=== PATIENT | male | born 1985 | race Caucasian/White ===

== ENCOUNTER 2016-12-29 09:27 | Day surgery (SDC) | payer BC ==
[~2016-12-29] VITALS: Ht 198.1 cm; Wt 178.2 kg
[2016-12-29 10:03] VITALS: BP 135/95; PULSE 106; TEMP 99.7
[2016-12-29] MEDS ORDERED: PREDNISONE10 MG PO (10:09)
[2016-12-29] MEDS ORDERED: LIALDA 1.2 GM1.2 GM PO (10:10)
[2016-12-29 11:23] VITALS: BP 124/82; PULSE 90
[2016-12-29 11:40] VITALS: BP 135/81; PULSE 89
[2016-12-29 11:55] VITALS: BP 140/89; PULSE 86
[2016-12-29 13:50] VITALS: BP 137/88; PULSE 84
== END 2016-12-29 12:10 | disposition home or self-care (01) ==
LOC: SDCO 09:27
DX: R19.5 Other fecal abnormalities (principal); K64.1 Second degree hemorrhoids; K59.00 Constipation, unspecified; R19.7 Diarrhea, unspecified; K50.90 Crohn's disease, unspecified, without complications; E66.01 Morbid (severe) obesity due to excess calories
CPT/HCPCS: OP; J2704; J7030

== ENCOUNTER 2018-03-25 08:21 | Inpatient (IN) | payer BC ==
[~2018-03-25] VITALS: Ht 198.1 cm; Wt 141.6 kg
[~2018-03-25 08:21] MED LIST: LIALDA 1.2 GM1.2 GM PO; PREDNISONE10 MG PO
[2018-03-25 09:27] LABS: BASO % 0.4 % (0.0-2.0); EOS # 0.2 (0.0-0.7); EOS % 2.3 % (0-4.0); GRAN # 5.4 (1.4-6.5); GRAN % 70.3 % (42.2-75.2); HEMATOCRIT 41.3 % (42.0-52.0); HEMOGLOBIN 12.9 g/dl (13.5-18.0); LYMPH # 1.5 (1.2-3.4); LYMPH % 18.9 % (20.0-51.0); MEAN CELL VOLUME 83 fl (80.0-100.0); MEAN CORPUSCULAR HEMOGLOBIN 26 pg (27.0-31.0); MEAN CORPUSCULAR HGB CONC 31 g/dl (33.0-37.0); MEAN PLATELET VOLUME 9.3 fl (7.4-10.4); MONO # 0.6 (0.1-0.6); MONO % 7.7 % (1.7-9.3); PLATELET COUNT 291 K/mm3 (130-400); RED BLOOD COUNT 4.96 M/mm3 (4.20-5.60); REDCELL DISTRIBUTION WIDTH-CV 15.1 % (11.5-14.5)
[2018-03-25 09:50] LABS: ALBUMIN 3.8 gm/dL (3.5-5.0); BILIRUBIN,TOTAL 0.4 mg/dL (0.0-1.0); C-REACTIVE PROTEIN 4.1 mg/dL (0.0-0.9); CREATININE, serum 0.91 mg/dL (0.66-1.25); POTASSIUM 3.4 mmol/L (3.4-5.0); TOTAL PROTEIN 7.3 gm/dL (6.4-8.2)
[2018-03-25 10:29] LABS: COLLECTION METHOD CLEAN CATCH
[2018-03-25 10:52] LABS: MUCOUS Present /lpf; PH 5 (5-8); SQUAMOUS EPITHELIAL None Seen /hpf; URINE APPEARANCE Hazy; URINE BACTERIA None Seen /hpf; URINE BILIRUBIN Negative (NEGATIVE); URINE BLOOD Negative (NEGATIVE); URINE COLOR Amber; URINE GLUCOSE Negative (NEGATIVE); URINE KETONE Negative (NEGATIVE); URINE LEUKOCYTE ESTERASE Negative (NEGATIVE); URINE NITRATE Negative (NEGATIVE); URINE PROTEIN(semi-quant) 1+ (NEGATIVE); URINE RBC None Seen /hpf; URINE UROBILINOGEN Negative (NEGATIVE)
[2018-03-25 14:30] VITALS: BP 111/67; PULSE 59; TEMP 98
[2018-03-25 20:32] VITALS: BP 96/48; PULSE 50; TEMP 97.6
[2018-03-25 23:52] VITALS: BP 98/65; PULSE 48; TEMP 97.7
[2018-03-26 03:47] VITALS: BP 104/56; PULSE 48; TEMP 97.8
[2018-03-26 07:20] LABS: BASO % 0.1 % (0.0-2.0); GRAN # 6.7 (1.4-6.5); HEMATOCRIT 37.6 % (42.0-52.0); HEMOGLOBIN 11.7 g/dl (13.5-18.0); LYMPH % 12.1 % (20.0-51.0); MEAN CELL VOLUME 84 fl (80.0-100.0); MEAN CORPUSCULAR HEMOGLOBIN 26 pg (27.0-31.0); MEAN CORPUSCULAR HGB CONC 31 g/dl (33.0-37.0); MEAN PLATELET VOLUME 9.7 fl (7.4-10.4); MONO # 0.3 (0.1-0.6); MONO % 3.4 % (1.7-9.3); PLATELET COUNT 265 K/mm3 (130-400); RED BLOOD COUNT 4.46 M/mm3 (4.20-5.60)
[2018-03-26 07:35] LABS: CALCIUM 8.5 mg/dL (8.4-10.2); CREATININE, serum 0.81 mg/dL (0.66-1.25)
[2018-03-26 08:10] VITALS: BP 96/54; PULSE 63; TEMP 97.5
[2018-03-26 12:08] VITALS: BP 114/61; PULSE 52; TEMP 98.1
[2018-03-26 16:25] VITALS: BP 122/74; PULSE 80; TEMP 98.6
[2018-03-26 20:03] VITALS: BP 114/65; PULSE 84; TEMP 98.3
[2018-03-27 00:44] VITALS: BP 115/66; PULSE 57; TEMP 98.6
[2018-03-27 04:46] VITALS: BP 105/58; PULSE 55; TEMP 98.4
[2018-03-27 08:08] VITALS: BP 106/68; PULSE 53; TEMP 97.6
[2018-03-27 11:50] VITALS: BP 124/84; PULSE 88; TEMP 97.8
== END 2018-03-27 13:46 | disposition home or self-care (01) | DRG 392 ==
LOC: COL.ER 08:21 → SURG 12:46
PROVIDERS: Nurse Practitioner; Surgery
DX: K52.9 Noninfective gastroenteritis and colitis, unspecified (principal); F17.220 Nicotine dependence, chewing tobacco, uncomplicated
CPT/HCPCS: J1170; J1720; J2405; J7030; J7042; J7512; Q9967

== ENCOUNTER 2018-04-01 13:16 | Day surgery (SDC) | payer BC ==
[~2018-04-01] VITALS: Ht 198.1 cm; Wt 143.1 kg
[2018-04-01] MEDS ORDERED: PREDNISONE20 MG PO (13:51)
[2018-04-01 14:07] VITALS: BP 145/84; PULSE 65; TEMP 98.5
[2018-04-01 15:05] VITALS: BP 117/79; PULSE 73; TEMP 98.8
[2018-04-01 15:20] VITALS: BP 120/73; PULSE 64
[2018-04-01 15:35] VITALS: BP 124/66; PULSE 62
[2018-04-01 15:50] VITALS: BP 124/61; PULSE 63
[2018-04-01 15:57] VITALS: BP 114/86; PULSE 56
== END 2018-04-01 16:20 | disposition home or self-care (01) ==
LOC: SDCO 13:16
DX: K50.10 Crohn's disease of large intestine without complications (principal); K56.609 Unspecified intestinal obstruction, unspecified as to partial versus complete obstruction; K52.9 Noninfective gastroenteritis and colitis, unspecified; E66.01 Morbid (severe) obesity due to excess calories
CPT/HCPCS: J2704

== ENCOUNTER 2018-11-05 02:41 | Inpatient (IN) | payer BC ==
[~2018-11-05] VITALS: Ht 198.1 cm; Wt 142.0 kg
[~2018-11-05 02:41] MED LIST changes: +PREDNISONE20 MG PO
[2018-11-05 03:31] LABS: BASO % 0.2 % (0.0-2.0); EOS # 0.1 (0.0-0.7); EOS % 1.1 % (0-4.0); GRAN # 10.3 (1.4-6.5); GRAN % 81.6 % (42.2-75.2); HEMATOCRIT 39.9 % (42.0-52.0); HEMOGLOBIN 12.7 g/dl (13.5-18.0); LYMPH # 1.4 (1.2-3.4); LYMPH % 11.1 % (20.0-51.0); MEAN CELL VOLUME 86 fl (80.0-100.0); MEAN CORPUSCULAR HEMOGLOBIN 27 pg (27.0-31.0); MEAN CORPUSCULAR HGB CONC 32 g/dl (33.0-37.0); MEAN PLATELET VOLUME 8.9 fl (7.4-10.4); MONO # 0.7 (0.1-0.6); MONO % 5.4 % (1.7-9.3); PLATELET COUNT 274 K/mm3 (130-400); RED BLOOD COUNT 4.66 M/mm3 (4.20-5.60); REDCELL DISTRIBUTION WIDTH-CV 13.6 % (11.5-14.5)
[2018-11-05] MEDS ORDERED: AZULFIDINE ENT500 MG PO (03:34)
[2018-11-05 03:44] LABS: ALBUMIN 3.6 gm/dL (3.5-5.0); BILIRUBIN,TOTAL 0.2 mg/dL (0.0-1.0); CALCIUM 8.5 mg/dL (8.4-10.2); CREATININE, serum 1.03 mg/dL (0.66-1.25); POTASSIUM 3.9 mmol/L (3.4-5.0)
[2018-11-05 04:03] LABS: COLLECTION METHOD CLEAN CATCH
[2018-11-05 04:12] LABS: PH 5 (5-8); SQUAMOUS EPITHELIAL None Seen /hpf; URINE APPEARANCE Clear; URINE BACTERIA None Seen /hpf; URINE BILIRUBIN Negative (NEGATIVE); URINE BLOOD Negative (NEGATIVE); URINE COLOR Yellow; URINE GLUCOSE Negative (NEGATIVE); URINE KETONE Negative (NEGATIVE); URINE LEUKOCYTE ESTERASE Negative (NEGATIVE); URINE NITRATE Negative (NEGATIVE); URINE PROTEIN(semi-quant) Negative (NEGATIVE); URINE RBC None Seen /hpf; URINE UROBILINOGEN Negative (NEGATIVE)
--- NOTE | 2018-11-05 09:04 | NUR ---
Pt report received from Pedro Pablo in emergency dept. Pt brought up to room. Pt sitting on bed and alert and oriented. Pt rates pain 5/10 in epigastric that radiates to left abdomen and back. Pt pain managed with PRN pain medicine. Pt denies SOB, dizziness, or chest pain. Pt oriented to room and denies further needs at this time. Meds list reviewed.
[2018-11-05 09:21] VITALS: BP 104/54; PULSE 63; TEMP 98.1
--- NOTE | 2018-11-05 10:15 | NUR ---
Initial visit; Patient thanked Truck Driving Instructor for looking in on him and offering God's blessings.
[2018-11-05 11:28] VITALS: BP 107/52; PULSE 59; TEMP 98.2
--- NOTE | 2018-11-05 14:15 | NUR ---
SW met with patient to discuss discharge planning. Patient lives in [place] and is independent in ADLs. patients PCP is Dr Oliver and he obtains his medicaitons from [facility] in . Patient plans [place] dc home at [place] with no unmet needs.
[2018-11-05 16:07] VITALS: BP 103/45; PULSE 63; TEMP 98.1
--- NOTE | 2018-11-05 17:12 | NUR ---
Pt resting in bed alert but drowsy. Pt put on fall precautions d/t narcotic pain medication being administered. Pt pain down to 4/10 after Percocet. Pt rated pain 5/10 and requested Dilaudid at 1700. Pt IV patent and fluids running. Pt has call light in reach and SCD's on BLE. Pt denies SOB or dizziness at this time.
--- NOTE | 2018-11-05 19:21 | NUR ---
Pt alert and oriented. Pt pain managed with PRN meds. Pt steady gait but on fall risk d/t pain medications. Pt mother and father at bedside. Pt ambulate in hallway with SBA to decrease back pain. Pt tolerating clear liquids without issue. Pt denies needs at this time and call light in reach. Pt report given to Archana REID.
[2018-11-05 19:29] VITALS: BP 109/53; PULSE 60; TEMP 97.9
--- NOTE | 2018-11-05 20:50 | NUR ---
Shift assessment complete. Pt resting in bed, awake, a&o, cooperative c cares. Pt reports continued c/o abd pain rated "about 6/10"; will give PRN pain meds c hs meds per pt request. IV patent. Pt denies further needs. Call light in reach, will monitor.
[2018-11-06 00:18] VITALS: BP 115/54; PULSE 58; TEMP 97.1
[2018-11-06 03:30] VITALS: BP 100/50; PULSE 47; TEMP 97.4
--- NOTE | 2018-11-06 07:00 | NUR ---
Pt resting in bed, condition unchanged. Pt has rested well this shift c very few needs. Pain moderately well controlled, rated 5-6/10. No N/V reported. Bedside shift report given to Hillary REID to assume pt cares.
[2018-11-06 07:52] VITALS: BP 102/59; PULSE 46; TEMP 97.6
--- NOTE | 2018-11-06 08:13 | NUR ---
PT HAS BEEN AMBULATING IN ROOM, STILL HAVING ABDOMINAL PAIN. HAS BEEN GIVEN PAIN MEDICATION, BUT HAS NOT CHANGED SCORE OF PAIN, IT IS STILL A 6/10 THAT IS ACHING. PT IS A/O X4, GAIT STEADY, AND HAS NOT HAD A BOWEL MOVEMENT FOR FOUR DAYS. PT STILL ON CLEAR LIQUID DIET. NO NEEDS AT THIS TIME, CALL LIGHT WITHIN REACH.
--- NOTE | 2018-11-06 10:24 | NUR ---
PT CONTINUES TO HAVE PAIN IN LEFT LOWER QUADRANT OF ABDOMINAL THAT IS RATED AT 7/10 THAT IS ACHING. PT GIVEN PERCOCET FOR PAIN. PT AMBULATES IN ROOM INDEPENDENTLY AND GAIT IS STEADY. NO FURTHER NEEDS AT THIS TIME, CALL LIGHT WITHIN REACH.
[2018-11-06 11:10] VITALS: BP 115/60; PULSE 64; TEMP 97.7
[2018-11-06 15:52] VITALS: BP 117/56; PULSE 51; TEMP 97.6
--- NOTE | 2018-11-06 20:24 | NUR ---
Sitting at bedside with parents in room. Assessment complete. Alert and orientated. Lungs clear. Heart sounds normal. Bowels active x4. Reports lower back and ABD pain, requesting pain medication after shower. No edema noted at this time. INT site wrapped for shower. Denies other needs. Will notify staff when shower complete for pain medications.
--- NOTE | 2018-11-06 21:11 | NUR ---
Provided PRN percocet 1 tab for 7/10 aching lower back and ABD pain.
[2018-11-06 22:12] VITALS: BP 104/56; PULSE 56; TEMP 97.2
[2018-11-07] VITALS: BP 119/61; PULSE 53; TEMP 98
--- NOTE | 2018-11-07 00:05 | NUR ---
Rating lower back and ABD pain 7/10. Provided PRN diluadid at this time. Denies other needs. Will monitor.
--- NOTE | 2018-11-07 04:30 | NUR ---
Reports 7/10 back and ABD pain. Provided with PRN percocet. Denies other needs. Call light in reach.
[2018-11-07 05:31] VITALS: BP 101/60; PULSE 52; TEMP 97.7
--- NOTE | 2018-11-07 06:26 | NUR ---
Uneventful night. Require pain medication for lower back and ABD pain. Rates pain above 5-6 throughout night. Denies needs this AM. Call light in reach.
--- NOTE | 2018-11-07 07:19 | NUR ---
Report given to FRANKLIN Chu.
[2018-11-07 07:53] LABS: HEMATOCRIT 38.3 % (42.0-52.0); HEMOGLOBIN 12.1 g/dl (13.5-18.0); MEAN CELL VOLUME 87 fl (80.0-100.0); MEAN CORPUSCULAR HEMOGLOBIN 27 pg (27.0-31.0); MEAN CORPUSCULAR HGB CONC 32 g/dl (33.0-37.0); MEAN PLATELET VOLUME 9.3 fl (7.4-10.4); PLATELET COUNT 324 K/mm3 (130-400); RED BLOOD COUNT 4.42 M/mm3 (4.20-5.60); REDCELL DISTRIBUTION WIDTH-CV 13.7 % (11.5-14.5)
[2018-11-07 08:09] LABS: CALCIUM 8.9 mg/dL (8.4-10.2); CREATININE, serum 0.81 mg/dL (0.66-1.25)
[2018-11-07 08:18] VITALS: BP 130/78; PULSE 61; TEMP 97.5
[2018-11-07 08:34] LABS: POTASSIUM 4.1 mmol/L (3.4-5.0)
--- NOTE | 2018-11-07 08:50 | NUR ---
Assessment completed, alert/ oriented, vital signs stable, reported intial pain assessment at 03/12 , Dilaudid and Ultram given and pain a 5 on reassessment, abdomen is soft / reports tenderness in lower quadrants, has been by and ordered for Fat controlled diet/ and a suppository to help get things moving, patient is ambulatory and walks the halls hoping this will help stimulate motility, heart RRR, lungs CTA, overall feeling a little better and pain is better today, he denies other needs at this time, will continue to monitor
[2018-11-07 09:35] LABS: BAND 10 % (0-10); NEUTROPHILS 81 % (42.0-75.2); PLATELET ESTIMATE NORMAL (NORMAL)
[2018-11-07 09:36] LABS: LYMPHOCYTE 8 % (20.0-51.0)
[2018-11-07 11:22] VITALS: BP 120/66; PULSE 54; TEMP 97.5
[2018-11-07 15:25] VITALS: BP 125/65; PULSE 51; TEMP 98
--- NOTE | 2018-11-07 19:03 | NUR ---
Report received from FRANKLIN Chu. Denies needs. Call light in reach.
[2018-11-07 20:30] VITALS: BP 133/75; PULSE 73; TEMP 97.8
--- NOTE | 2018-11-07 21:59 | NUR ---
Resting in bed. Assessment complete. Lungs clear. Heart sounds normal. Bowels active x4. No edema noted. Patient reports 4/10 ABD pain. Denies need for intervention at this time. States "I am comfortable." Denies other needs at this time. Call light in reach.
[2018-11-08] VITALS (9 sets, daily range): BP systolic 00–122; BP diastolic 53–68; PULSE 38–88; TEMP 96.8–98.1
--- NOTE | 2018-11-08 01:07 | NUR ---
Reports 7/10 ABD pain and nausea. Provided PRN zofran and percocet. Denies other needs. Will monitor
[2018-11-08 06:14] LABS: HEMATOCRIT 38.8 % (42.0-52.0); MEAN CELL VOLUME 88 fl (80.0-100.0); MEAN CORPUSCULAR HEMOGLOBIN 27 pg (27.0-31.0); MEAN CORPUSCULAR HGB CONC 31 g/dl (33.0-37.0); MEAN PLATELET VOLUME 9.7 fl (7.4-10.4); PLATELET COUNT 336 K/mm3 (130-400); RED BLOOD COUNT 4.41 M/mm3 (4.20-5.60); REDCELL DISTRIBUTION WIDTH-CV 13.8 % (11.5-14.5)
[2018-11-08 06:25] LABS: CALCIUM 8.6 mg/dL (8.4-10.2); CREATININE, serum 0.97 mg/dL (0.66-1.25); POTASSIUM 4.3 mmol/L (3.4-5.0)
--- NOTE | 2018-11-08 06:37 | NUR ---
Sitting at bedside this AM. Required pain control throughout shift. States pain has decreased this AM, "aching." Provided with snack with morning medications. Denies needs at this time. Call light in reach.
--- NOTE | 2018-11-08 07:22 | NUR ---
Report given to FRANKLIN Kim
[2018-11-08 09:08] LABS: BAND 13 % (0-10); LYMPHOCYTE 10 % (20.0-51.0); NEUTROPHILS 73 % (42.0-75.2)
[2018-11-08 09:11] LABS: PLATELET ESTIMATE NORMAL (NORMAL)
--- NOTE | 2018-11-08 10:02 | NUR ---
pt in bed awake and alert x 3. states pain is a 6 to abdominal area. Heart regular rate and rhythm. lungs clear to auscultation. bowel sounds audible in all 4 quadrants. Radial and pedal pulses present. skin warm and dry. IV to rt forearm without signs of redness or erythema. pt ambulates without assistance. primary nurse FRANKLIN Kim.
--- NOTE | 2018-11-08 10:15 | NUR ---
Pt alert and oriented. Pt rates pain /10. Pain managed with PRN meds. Pt needing to have BM. Pt denies SOB. Pt diet advanced to fat controlled. Pt toleratint PO without vomiting. Pt voiding yellow clear urine. Pt has call light in reach and denies needs.
--- NOTE | 2018-11-08 13:49 | NUR ---
Primary nurse was assisted with [phone] patient care by [employer] student Michelle Medrano and [employer] instructor Arleen Mcdermott RN-BC.
--- NOTE | 2018-11-08 14:54 | NUR ---
pt walking down the romero. came back to room to assess his pulse. radial pulse is 38. spo2 monitor states pulse is 41. respiration is 14. pt is asymptomatic. primary nurse notified and states she would observe.
--- NOTE | 2018-11-08 17:38 | NUR ---
Pt resting in bed with family at bedside. Pt alert and oriented. Pt rates pain 6/10. Pt had small BM this afternoon and was able to pass small amount of gas. Pt requested to add stool softner if possible. updated and sanjeev PRN added. Pt has call light in reach and denies needs at this time.
--- NOTE | 2018-11-08 19:24 | NUR ---
Pt report given to Santiago REID
--- NOTE | 2018-11-08 20:50 | NUR ---
Pt resting in bed, voiced desire to take a shower this evening, shift assessments complete, left Pt call light in reach, bed in lowest position,
[2018-11-09 00:43] VITALS: BP 121/60; PULSE 43; TEMP 98.6
--- NOTE | 2018-11-09 06:28 | NUR ---
Pt slept well during the night, no C/O pain, has been independent in the room and has been out of the room walking in the hallway, VS have remained stable.
[2018-11-09 08:10] LABS: HEMATOCRIT 40.1 % (42.0-52.0); HEMOGLOBIN 12.9 g/dl (13.5-18.0); MEAN CELL VOLUME 86 fl (80.0-100.0); MEAN CORPUSCULAR HEMOGLOBIN 28 pg (27.0-31.0); MEAN CORPUSCULAR HGB CONC 32 g/dl (33.0-37.0); MEAN PLATELET VOLUME 9.4 fl (7.4-10.4); PLATELET COUNT 334 K/mm3 (130-400); RED BLOOD COUNT 4.69 M/mm3 (4.20-5.60); REDCELL DISTRIBUTION WIDTH-CV 13.9 % (11.5-14.5)
[2018-11-09 08:28] VITALS: BP 141/87; PULSE 66; TEMP 97.5
[2018-11-09 08:33] LABS: CALCIUM 8.4 mg/dL (8.4-10.2); CREATININE, serum 0.91 mg/dL (0.66-1.25); POTASSIUM 4.1 mmol/L (3.4-5.0)
[2018-11-09 09:24] LABS: BAND 1 % (0-10); LYMPHOCYTE 12 % (20.0-51.0); NEUTROPHILS 87 % (42.0-75.2); PLATELET ESTIMATE NORMAL (NORMAL)
--- NOTE | 2018-11-09 09:30 | NUR ---
Assessment complete. Patient has no needs at this time. Denies any needs. Reports pain 6/10 but states that is tolerable and he denies any need for pain medication. INT flushed without difficulty
[2018-11-09] MEDS ORDERED: CIPRO 500MG TA500 MG PO (11:37)
[2018-11-09] MEDS ORDERED: FLAGYL500 MG PO (11:38)
[2018-11-09] MEDS ORDERED: COLACE 100100 MG/CAP PO (11:39)
[2018-11-09] MEDS ORDERED: PROTONIX 40MG T40 MG PO (11:39)
[2018-11-09] MEDS ORDERED: PREDNISONE10 MG PO (11:48)
[2018-11-09] MEDS ORDERED: PERCOCET 325 MG1 TA2 PO (11:48)
[2018-11-09] MEDS ORDERED: DULCOLAX S10 MG/SUPP RC (11:48)
[2018-11-09 12:43] VITALS: BP 118/58; PULSE 49; TEMP 97.7
--- NOTE | 2018-11-09 14:05 | NUR ---
INT removed. Discharge instructions reviewed with patient and his family. Questions answered. Patient had concerns as he was unable to get medications until tomorrow. After visiting with patient he requested that his medications be called over to [facility] pharmacy. Medications called over. Patient dressed and ready for discharge. Ambulated to car at this time with family
== END 2018-11-09 14:05 | disposition home or self-care (01) | DRG 387 ==
LOC: COL.ER 02:41 → MEDICAL 06:10
PROVIDERS: Emergency Medicine; Internal Medicine Gastroenterology; Nurse Practitioner Family; ADMIT Family Medicine
DX: K50.00 Crohn's disease of small intestine without complications (principal); F17.220 Nicotine dependence, chewing tobacco, uncomplicated; R00.1 Bradycardia, unspecified
CPT/HCPCS: 99222-AI; 99232-AI; A4216; J0696; J1170; J2270; J2405; J2930; J7030; Q9967

== ENCOUNTER 2021-04-03 14:59 | Emergency (ER) | payer BC ==
[~2021-04-03] VITALS: Ht 200.7 cm; Wt 168.2 kg
[~2021-04-03 14:59] MED LIST changes: +AZULFIDINE ENT500 MG PO; +CIPRO 500MG TA500 MG PO; +COLACE 100100 MG/CAP PO; +DULCOLAX S10 MG/SUPP RC; +FLAGYL500 MG PO; +PERCOCET 325 MG1 TA2 PO; +PROTONIX 40MG T40 MG PO
[2021-04-03 15:22] VITALS: TEMP 97.7
[2021-04-03 15:49] LABS: BASO % 0.5 % (0.0-2.0); EOS # 0.1 (0.0-0.7); EOS % 1.7 % (0-4.0); GRAN % 79.7 % (42.2-75.2); HEMOGLOBIN 14.4 g/dl (13.5-18.0); LYMPH # 0.9 (1.2-3.4); LYMPH % 11.5 % (20.0-51.0); MEAN CELL VOLUME 83 fl (80.0-100.0); MEAN CORPUSCULAR HEMOGLOBIN 27 pg (27.0-31.0); MEAN CORPUSCULAR HGB CONC 32 g/dl (33.0-37.0); MEAN PLATELET VOLUME 9.3 fl (7.4-10.4); MONO # 0.5 (0.1-0.6); MONO % 6.3 % (1.7-9.3); PLATELET COUNT 238 K/mm3 (130-400); RED BLOOD COUNT 5.44 M/mm3 (4.20-5.60); REDCELL DISTRIBUTION WIDTH-CV 14.5 % (11.5-14.5)
[2021-04-03 16:01] LABS: ALBUMIN 4.3 gm/dL (3.5-5.0); BILIRUBIN,TOTAL 0.5 mg/dL (0.0-1.0); C-REACTIVE PROTEIN 3.8 mg/dL (0.0-0.9); CALCIUM 8.9 mg/dL (8.4-10.2); CREATININE, serum 0.97 (0.66-1.25); TOTAL PROTEIN 7.6 gm/dL (6.4-8.2)
[2021-04-03 16:20] LABS: COLLECTION METHOD CLEAN CATCH
[2021-04-03 16:35] LABS: MUCOUS Present /lpf; PH 5 (5-8); SQUAMOUS EPITHELIAL None Seen /hpf; URINE APPEARANCE Clear; URINE BACTERIA None Seen /hpf; URINE BILIRUBIN Negative (NEGATIVE); URINE BLOOD Negative (NEGATIVE); URINE COLOR Yellow; URINE GLUCOSE Negative (NEGATIVE); URINE KETONE Negative (NEGATIVE); URINE LEUKOCYTE ESTERASE Negative (NEGATIVE); URINE NITRATE Negative (NEGATIVE); URINE PROTEIN(semi-quant) 1+ (NEGATIVE); URINE RBC 0-2 /hpf; URINE UROBILINOGEN Negative (NEGATIVE)
[2021-04-03] MEDS ORDERED: PREDNISONE20 MG PO (17:47)
[2021-04-03] MEDS ORDERED: ZOFRAN ODT4 MG PO (17:54)
[2021-04-03 18:15] VITALS: BP 130/84; PULSE 80
== END 2021-04-03 18:30 | disposition home or self-care (01) ==
LOC: COL.ER 14:59
PROVIDERS: Nurse Practitioner
DX: K50.90 Crohn's disease, unspecified, without complications (principal); F17.220 Nicotine dependence, chewing tobacco, uncomplicated
CPT/HCPCS: J1170; J2405; J7030; J7512; Q9967

== ENCOUNTER 2022-05-04 11:10 | Inpatient (IN) | payer BC ==
[2022-05-04] VITALS (13 sets, daily range): BP systolic 88–122; BP diastolic 32–72; PULSE 66–99; TEMP 98.3–102.5
[~2022-05-04] VITALS: Ht 198.1 cm; Wt 108.5 kg
[~2022-05-04 11:10] MED LIST changes: +ZOFRAN ODT4 MG PO
[2022-05-04 12:31] LABS: BASO % 0.3 % (0.0-2.0); EOS % 0.1 % (0.0-4.0); GRAN # 9.6 K/mm3 (1.4-6.5); GRAN % 87.8 % (42.2-75.2); LYMPH # 0.5 K/mm3 (1.2-3.4); LYMPH % 4.5 % (20.0-51.0); MEAN CELL VOLUME 81 fl (80.0-100.0); MEAN CORPUSCULAR HGB CONC 29 g/dl (33.0-37.0); MEAN PLATELET VOLUME 8.5 fl (7.4-10.4); MONO # 0.7 K/mm3 (0.1-0.6); MONO % 6.8 % (1.7-9.3); PLATELET COUNT 359 K/mm3 (130-400); RED BLOOD COUNT 3.82 M/mm3 (4.20-5.60); REDCELL DISTRIBUTION WIDTH-CV 15.9 % (11.5-14.5)
[2022-05-04 12:35] LABS: HEMATOCRIT 30.9 % (42.0-52.0); HEMOGLOBIN 9.1 g/dl (13.5-18.0); MEAN CORPUSCULAR HEMOGLOBIN 24 pg (27-31)
[2022-05-04] MEDS ORDERED: LIALDA 1.2 GM1.2 GM PO (12:48)
[2022-05-04 12:49] LABS: ALBUMIN 2.2 gm/dL (3.5-5.0); BILIRUBIN,TOTAL 0.4 mg/dL (0.2-1.2); CALCIUM 8.3 mg/dL (8.4-10.2); CREATININE, serum 0.82 mg/dL (0.72-1.25); TOTAL PROTEIN 6.5 gm/dL (6.2-8.1)
[2022-05-04] MEDS ORDERED: EFFEXOR XR75 MG/CAP PO (12:49)
[2022-05-04] MEDS ORDERED: ABILIFY5 MG PO (12:50)
[2022-05-04 12:59] LABS: POTASSIUM 2.9 mmol/L (3.5-4.5)
[2022-05-05 04:37] VITALS: BP 92/49; PULSE 73; TEMP 99.1
[2022-05-05 07:24] LABS: BASO % 0.3 % (0.0-2.0); EOS # 0.1 K/mm3 (0.0-0.7); EOS % 0.8 % (0.0-4.0); GRAN # 5.7 K/mm3 (1.4-6.5); GRAN % 85.1 % (42.2-75.2); LYMPH # 0.5 K/mm3 (1.2-3.4); LYMPH % 6.8 % (20.0-51.0); MEAN CELL VOLUME 79 fl (80.0-100.0); MEAN CORPUSCULAR HGB CONC 30 g/dl (33.0-37.0); MEAN PLATELET VOLUME 8.7 fl (7.4-10.4); MONO # 0.4 K/mm3 (0.1-0.6); MONO % 6.5 % (1.7-9.3); PLATELET COUNT 270 K/mm3 (130-400); RED BLOOD COUNT 3.25 M/mm3 (4.20-5.60); REDCELL DISTRIBUTION WIDTH-CV 15.9 % (11.5-14.5)
[2022-05-05 07:25] LABS: HEMATOCRIT 25.7 % (42.0-52.0); HEMOGLOBIN 7.8 g/dl (13.5-18.0); MEAN CORPUSCULAR HEMOGLOBIN 24 pg (27-31)
[2022-05-05 07:42] LABS: ALBUMIN 1.9 gm/dL (3.5-5.0); BILIRUBIN,TOTAL 0.3 mg/dL (0.2-1.2); CALCIUM 7.8 mg/dL (8.4-10.2); CREATININE, serum 0.74 mg/dL (0.72-1.25); POTASSIUM 3.3 mmol/L (3.5-4.5); TOTAL PROTEIN 5.4 gm/dL (6.2-8.1)
[2022-05-05 07:43] VITALS: BP 95/48; PULSE 72; TEMP 98.8
[2022-05-05 12:38] VITALS: BP 101/55; PULSE 74; TEMP 98.3
[2022-05-05 16:11] VITALS: BP 99/52; PULSE 84; TEMP 98.8
[2022-05-05 20:40] VITALS: BP 103/50; PULSE 95; TEMP 98.8
[2022-05-06] VITALS (7 sets, daily range): BP systolic 93–115; BP diastolic 52–71; PULSE 78–91; TEMP 97.7–98.9
[2022-05-06 07:15] LABS: CALCIUM 7.8 mg/dL (8.4-10.2); CREATININE, serum 0.74 mg/dL (0.72-1.25); POTASSIUM 3.2 mmol/L (3.5-4.5)
[2022-05-06 07:39] LABS: BASO % 0.2 % (0.0-2.0); EOS # 0.1 K/mm3 (0.0-0.7); GRAN % 82.3 % (42.2-75.2); HEMOGLOBIN 7.9 g/dl (13.5-18.0); LYMPH # 0.5 K/mm3 (1.2-3.4); LYMPH % 7.9 % (20.0-51.0); MEAN CELL VOLUME 82 fl (80.0-100.0); MEAN CORPUSCULAR HEMOGLOBIN 25 pg (27-31); MEAN CORPUSCULAR HGB CONC 30 g/dl (33.0-37.0); MEAN PLATELET VOLUME 8.6 fl (7.4-10.4); MONO # 0.5 K/mm3 (0.1-0.6); MONO % 7.8 % (1.7-9.3); PLATELET COUNT 271 K/mm3 (130-400); RED BLOOD COUNT 3.17 M/mm3 (4.20-5.60); REDCELL DISTRIBUTION WIDTH-CV 15.9 % (11.5-14.5)
[2022-05-07 03:26] VITALS: BP 91/55; PULSE 77; TEMP 97.9
[2022-05-07 07:31] VITALS: BP 112/68; PULSE 77; TEMP 98.5
[2022-05-07 11:45] VITALS: BP 113/64; PULSE 82; TEMP 98
[2022-05-07 16:26] VITALS: BP 116/71; PULSE 90; TEMP 98.5
[2022-05-07 19:37] VITALS: BP 103/59; PULSE 90; TEMP 98
[2022-05-08 00:31] VITALS: BP 111/68; PULSE 78; TEMP 97.9
[2022-05-08 04:26] VITALS: BP 108/63; PULSE 75; TEMP 97.9
[2022-05-08 08:00] VITALS: BP 107/67; PULSE 82; TEMP 97.7
[2022-05-08] MEDS ORDERED: AMOXICILLIN 8751 TAB PO (08:05)
[2022-05-08] MEDS ORDERED: FLAGYL500 MG PO (08:05)
== END 2022-05-08 11:05 | disposition home or self-care (01) | DRG 385 ==
LOC: INPTSU 11:10 → SURG 11:10
PROVIDERS: ADMIT Surgery
PROC: 02HV33Z Insertion of Infusion Device into Superior Vena Cava, Percutaneous Approach (ICD-10-PCS; principal; 2022-05-04)
PROC: 0W9F30Z Drainage of Abdominal Wall with Drainage Device, Percutaneous Approach (ICD-10-PCS; 2022-05-04)
DX: K50.914 Crohn's disease, unspecified, with abscess (principal); K68.12 Psoas muscle abscess; L02.211 Cutaneous abscess of abdominal wall; R78.81 Bacteremia; N45.1 Epididymitis; E66.01 Morbid (severe) obesity due to excess calories; F32.A Depression, unspecified; F41.9 Anxiety disorder, unspecified; G47.33 Obstructive sleep apnea (adult) (pediatric); R50.82 Postprocedural fever; Z90.49 Acquired absence of other specified parts of digestive tract; Z87.891 Personal history of nicotine dependence; Z91.010 Allergy to peanuts; Z91.018 Allergy to other foods; Z68.27 Body mass index [BMI] 27.0-27.9, adult
CPT/HCPCS: C1729; C1751; J2543; J3480; J7042; Q9967

== ENCOUNTER 2022-05-22 12:58 | Inpatient (IN) | payer BC ==
[~2022-05-22] VITALS: Ht 198.1 cm; Wt 103.5 kg
[~2022-05-22 12:58] MED LIST changes: +ABILIFY5 MG PO; +AMOXICILLIN 8751 TAB PO; +EFFEXOR XR75 MG/CAP PO
[2022-05-22 14:23] LABS: BASO % 0.3 % (0.0-2.0); EOS % 0.3 % (0.0-4.0); GRAN # 9.9 K/mm3 (1.4-6.5); GRAN % 85.5 % (42.2-75.2); HEMOGLOBIN 11.3 g/dl (13.5-18.0); LYMPH # 0.5 K/mm3 (1.2-3.4); LYMPH % 4.5 % (20.0-51.0); MEAN CELL VOLUME 83 fl (80.0-100.0); MEAN CORPUSCULAR HEMOGLOBIN 26 pg (27-31); MEAN CORPUSCULAR HGB CONC 31 g/dl (33.0-37.0); MEAN PLATELET VOLUME 9.2 fl (7.4-10.4); MONO # 1.1 K/mm3 (0.1-0.6); MONO % 9.1 % (1.7-9.3); PLATELET COUNT 275 K/mm3 (130-400); RED BLOOD COUNT 4.36 M/mm3 (4.20-5.60); REDCELL DISTRIBUTION WIDTH-CV 20.3 % (11.5-14.5)
[2022-05-22 14:24] LABS: HEMATOCRIT 36.1 % (42.0-52.0)
[2022-05-22 14:42] LABS: BILIRUBIN,TOTAL 0.7 mg/dL (0.2-1.2); CALCIUM 9.4 mg/dL (8.4-10.2); CREATININE, serum 0.86 mg/dL (0.72-1.25); POTASSIUM 4.2 mmol/L (3.5-4.5); TOTAL PROTEIN 7.9 gm/dL (6.2-8.1)
[2022-05-22 17:57] VITALS: BP 125/83; PULSE 111; TEMP 98.7
--- NOTE | 2022-05-22 18:12 | NUR ---
PT ADMITTED TO MEDICAL UNIT. ADMISSION INTAKE AND ASSESSMENT COMPLETED. MED REC UPDATED. PT ORIENTED TO ROOM, PARENTS AT BEDSIDE. PT REPORTS R SIDED ABDOMINAL/FLANK PAIN. DENIES ANY OTHER CONCERNS AT THIS TIME. CALL LIGHT WITHIN REACH. WILL CONTINUE TO MONITOR.
[2022-05-22 19:41] VITALS: BP 113/62; PULSE 97; TEMP 98.9
[2022-05-22 23:57] VITALS: BP 102/55; PULSE 93; TEMP 98.3
[2022-05-23] VITALS (17 sets, daily range): BP systolic 101–125; BP diastolic 58–79; PULSE 74–94; TEMP 97.9–99.2
--- NOTE | 2022-05-23 06:05 | NUR ---
PATIENT RESTED QUIETLY THIS SHIFT. PATIENT RECEIVED PRN PAIN PILL AT HS AND REPORTED EFFECTIVE.
[2022-05-23 07:04] LABS: BASO % 0.2 % (0.0-2.0); EOS # 0.1 K/mm3 (0.0-0.7); GRAN # 7.5 K/mm3 (1.4-6.5); GRAN % 81.5 % (42.2-75.2); LYMPH # 0.6 K/mm3 (1.2-3.4); LYMPH % 6.8 % (20.0-51.0); MEAN CELL VOLUME 85 fl (80.0-100.0); MEAN CORPUSCULAR HGB CONC 31 g/dl (33.0-37.0); MEAN PLATELET VOLUME 9.4 fl (7.4-10.4); MONO # 0.9 K/mm3 (0.1-0.6); MONO % 10.3 % (1.7-9.3); PLATELET COUNT 244 K/mm3 (130-400); RED BLOOD COUNT 3.75 M/mm3 (4.20-5.60); REDCELL DISTRIBUTION WIDTH-CV 20.1 % (11.5-14.5)
[2022-05-23 07:07] LABS: HEMATOCRIT 31.7 % (42.0-52.0); HEMOGLOBIN 9.9 g/dl (13.5-18.0); MEAN CORPUSCULAR HEMOGLOBIN 26 pg (27-31)
[2022-05-23 07:22] LABS: INR 1.3 (0.8-3.0); PROTHROMBIN TIME 14.8 SECONDS (9.7-12.8)
[2022-05-23 07:38] LABS: ALBUMIN 2.6 gm/dL (3.5-5.0); BILIRUBIN,TOTAL 0.5 mg/dL (0.2-1.2); CALCIUM 8.7 mg/dL (8.4-10.2); CREATININE, serum 0.82 mg/dL (0.72-1.25); POTASSIUM 3.8 mmol/L (3.5-4.5); TOTAL PROTEIN 6.8 gm/dL (6.2-8.1)
--- NOTE | 2022-05-23 07:56 | NUR ---
PT IN BED WITH IV ABX RUNNING UPON ASSESSMENT. PAIN TREATED ACCORDING TO NOV. PT NPO SINCE MIDNIGHT FOR POSSIBLE DRAIN PLACEMENT.
--- NOTE | 2022-05-23 11:31 | NUR ---
Pt to ct per wheelchair. Pt positioned on cart in supine position tilted to the left. Monitors applied. O2 on at 2l/nc.
--- NOTE | 2022-05-23 12:05 | NUR ---
Dr Dodson removed 350 mls of tannish drainage removed from abdomen. Specimen obtained and labeled.
--- NOTE | 2022-05-23 12:38 | NUR ---
Sara: Jew Situation: can vacuum tester stopped by room on rounds Background: Pt was resting and content Assessment: no needs right now. Pt appreciated the visit Recommendation: can vacuum tester will follow up as needed
--- NOTE | 2022-05-23 14:31 | NUR ---
Air Pollution Auditor met with patient to discuss discharge planning. Patient lives in [place] and sees Dr. Oliver for primary care. Patient obtains medications from [facility] pharmacy in [place] with no difficulties and does not use any DME. Patient is independent with ADLS and plans to return home at time of discharge. Patient does not have Advance Directives and is not interested in completing DPOA-HC at this time. Patient's next of kin would be his parents, Ai and Fazal. Discharge Plan: Home
[2022-05-24 04:09] VITALS: BP 108/62; PULSE 91; TEMP 98.8
[2022-05-24 06:22] LABS: BASO % 0.3 % (0.0-2.0); EOS # 0.1 K/mm3 (0.0-0.7); EOS % 1.9 % (0.0-4.0); GRAN # 4.9 K/mm3 (1.4-6.5); GRAN % 82.6 % (42.2-75.2); LYMPH # 0.4 K/mm3 (1.2-3.4); LYMPH % 7.4 % (20.0-51.0); MEAN CELL VOLUME 83 fl (80.0-100.0); MEAN CORPUSCULAR HGB CONC 32 g/dl (33.0-37.0); MEAN PLATELET VOLUME 9.2 fl (7.4-10.4); MONO # 0.4 K/mm3 (0.1-0.6); MONO % 7.3 % (1.7-9.3); PLATELET COUNT 217 K/mm3 (130-400); RED BLOOD COUNT 3.48 M/mm3 (4.20-5.60); REDCELL DISTRIBUTION WIDTH-CV 19.5 % (11.5-14.5)
[2022-05-24 06:29] LABS: HEMATOCRIT 28.7 % (42.0-52.0); HEMOGLOBIN 9.2 g/dl (13.5-18.0); MEAN CORPUSCULAR HEMOGLOBIN 26 pg (27-31)
[2022-05-24 06:41] LABS: ALBUMIN 2.5 gm/dL (3.5-5.0); BILIRUBIN,TOTAL 0.2 mg/dL (0.2-1.2); CALCIUM 8.1 mg/dL (8.4-10.2); CREATININE, serum 0.66 mg/dL (0.72-1.25); POTASSIUM 3.7 mmol/L (3.5-4.5); TOTAL PROTEIN 5.8 gm/dL (6.2-8.1)
--- NOTE | 2022-05-24 08:00 | NUR ---
Pt found up and ambulating out of the bathroom. Morning medications administered. Shift assessment completed. INT on R AC infiltrated; Vivienne RN aware. Will D/C INT upon receiving discharge orders as pt is expected to go home today. Drain on R lower back intact with bright red blood draining; dressing CDI. No further complaints or requests at this time. Call light within reach.
[2022-05-24 08:10] VITALS: BP 108/67; PULSE 83; TEMP 97.8
[2022-05-24 11:05] VITALS: BP 117/82; PULSE 85; TEMP 97.7
[2022-05-24] MEDS ORDERED: AMOXICILLIN 8751 TAB PO (12:21)
[2022-05-24] MEDS ORDERED: FLAGYL500 MG PO (12:21)
--- NOTE | 2022-05-24 14:45 | NUR ---
INT on R AC discontinued; catheter head intact. Discharge instructions provided. All questions answered. Pt escorted out of [facility] by pts parents.
== END 2022-05-24 14:45 | disposition home or self-care (01) | DRG 385 ==
LOC: COL.ER 12:58 → MEDICAL 16:16
PROVIDERS: Personal Emergency Response Attendant; ADMIT Surgery
PROC: 0W9F30Z Drainage of Abdominal Wall with Drainage Device, Percutaneous Approach (ICD-10-PCS; principal; 2022-05-23)
DX: K50.914 Crohn's disease, unspecified, with abscess (principal); K68.12 Psoas muscle abscess; E46 Unspecified protein-calorie malnutrition; L02.211 Cutaneous abscess of abdominal wall; F32.A Depression, unspecified; G47.30 Sleep apnea, unspecified; D72.829 Elevated white blood cell count, unspecified; Z90.49 Acquired absence of other specified parts of digestive tract; Z88.8 Allergy status to other drugs, medicaments and biological substances; Z91.010 Allergy to peanuts; Z91.014 Allergy to mammalian meats; Z72.89 Other problems related to lifestyle; Z68.26 Body mass index [BMI] 26.0-26.9, adult
CPT/HCPCS: C1729; C1769; J1170; J2250; J2270; J2405; J2543; J3010; J7030; J7120; Q9967

== ENCOUNTER → 2022-05-26 | Outpatient (CLI) | payer BC | LOC: COL.RAD 07:17 | DX: K50.80 Crohn's disease of both small and large intestine without complications (principal); K65.1 Peritoneal abscess | CPT/HCPCS: Q9967 ==